=== PATIENT | female | born 1995 | race Caucasian/White ===

== ENCOUNTER 2017-07-23 18:08 | Emergency (ER) | payer OTHER ==
[~2017-07-23] VITALS: Ht 152.4 cm; Wt 47.7 kg
[2017-07-23 18:11] VITALS: BP 123/82; PULSE 99; RESP 20; O2SAT 100
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
[2017-07-23] MEDS ORDERED: 0.9% Sodium Chloride 1,000 ML IV ONE (19:39)
[2017-07-23] MEDS ORDERED: HYDROmorphone 0.5 mg/0.5 mL iSecure Syringe IVPUSH PRN (19:40)
[2017-07-23] MEDS ORDERED: Ondansetron 2 mg/mL 2 mL Inj IVPUSH ONE (19:40)
[2017-07-23 20:07] LABS: BASOPHILS % (AUTO) 0.1 % (0-3); MONOCYTES % (AUTO) 7.7 % (4-12); Mean Corpuscular Hemoglobin 25.5 pg (27.0-35.0); Mean Corpuscular Volume 77.2 fL (81-100); NEUTROPHILS % (AUTO) 57.9 % (40-74); Platelet Count 251 bil/L (150-400)
[2017-07-23] MEDS ORDERED: HYDROmorphone 1 mg/mL Inj IVPUSH PRN (20:22)
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
[2017-07-23] MEDS ORDERED: _HYDROcodone/APAP 5-325 mg Tablet PO PRN (21:40)
== END 2017-07-23 22:19 | disposition home or self-care (01) ==
LOC: SED 18:08
DX: S32.008A Other fracture of unspecified lumbar vertebra, initial encounter for closed fracture (principal); S80.02XA Contusion of left knee, initial encounter; V47.5XXA Car driver injured in collision with fixed or stationary object in traffic accident, initial encounter; Y93.89 Activity, other specified; Y92.410 Unspecified street and highway as the place of occurrence of the external cause; Y99.8 Other external cause status; F17.200 Nicotine dependence, unspecified, uncomplicated; E73.9 Lactose intolerance, unspecified; Z91.018 Allergy to other foods
CPT/HCPCS: 36415; 70450; 71010; 73562; 74177; 80053; 81025; 85025; 86850; 96361; 96374; 96375; 99285; J1170; J2405; J7030; Q9967